=== PATIENT | male | born 1955 | race Asian ===

== ENCOUNTER 2023-10-26 10:03 | Day surgery (SDC) | payer OTHER ==
[~2023-10-26] VITALS: Ht 175.3 cm; Wt 94.8 kg
[2023-10-26] MEDS ORDERED: fentaNYL citrate 0.05 MG/ML VIAL ONE (11:32)
[2023-10-26] MEDS ORDERED: LIDOCAINE 2% 100 MG/5 ML UJET TP ONE (11:32)
[2023-10-26] MEDS: fentaNYL citrate 0.05 MG/ML VIAL IVP ONE (11:40)
== END 2023-10-26 12:35 | disposition home or self-care (01) ==
LOC: MDS 10:03 → MMU 10:04 → MDS 12:35
PROVIDERS: ATTEND Internal Medicine Gastroenterology
DX: Z12.11 Encounter for screening for malignant neoplasm of colon (principal); D12.2 Benign neoplasm of ascending colon; D12.5 Benign neoplasm of sigmoid colon; I10 Essential (primary) hypertension; E11.9 Type 2 diabetes mellitus without complications; Z85.51 Personal history of malignant neoplasm of bladder; Z90.49 Acquired absence of other specified parts of digestive tract; Z79.82 Long term (current) use of aspirin; Z79.84 Long term (current) use of oral hypoglycemic drugs; Z79.899 Other long term (current) drug therapy
CPT/HCPCS: 45385; 82948; 88300; J3010